=== PATIENT | female | born 1975 | race Caucasian/White ===

== ENCOUNTER → 2017-04-15 | Outpatient (CLI) | payer OTHER ==
[~2017-04-15] VITALS: Ht 167.6 cm; Wt 136.0 kg
[~2017-04-15] MED LIST: DEXILANT30 MG PO; DEXILANT60 MG PO; ENDOCET 5-3251 EACH PO; IBUPROFEN800 MG PO; LO-DOSE ASPIRIN81 M2 PO; PRENATAL TABLE1 EAC3 PO; PRILOSEC OTC20 MG PO; ZANTAC150 MG PO
== END | disposition home or self-care (01) ==
LOC: AMB 04-10 08:00 → OPR 04-10 10:00 → AMB 04-10 12:00 → OPR 04-10 14:00 → AMB 13:30
PROC: 0DB68ZX Excision of Stomach, Via Natural or Artificial Opening Endoscopic, Diagnostic (ICD-10-PCS; principal; 2017-04-15)
PROC: 0DBN8ZX Excision of Sigmoid Colon, Via Natural or Artificial Opening Endoscopic, Diagnostic (ICD-10-PCS; principal; 2017-04-15)
PROC: 0DBP8ZX Excision of Rectum, Via Natural or Artificial Opening Endoscopic, Diagnostic (ICD-10-PCS; principal; 2017-04-15)
PROC: 0DBE8ZX Excision of Large Intestine, Via Natural or Artificial Opening Endoscopic, Diagnostic (ICD-10-PCS; principal; 2017-04-15)
PROC: 0DBL8ZX Excision of Transverse Colon, Via Natural or Artificial Opening Endoscopic, Diagnostic (ICD-10-PCS; principal; 2017-04-15)
DX: Z12.11 Encounter for screening for malignant neoplasm of colon (principal); D12.3 Benign neoplasm of transverse colon; D12.5 Benign neoplasm of sigmoid colon; K62.1 Rectal polyp; K44.9 Diaphragmatic hernia without obstruction or gangrene; K29.70 Gastritis, unspecified, without bleeding; K21.9 Gastro-esophageal reflux disease without esophagitis; Z83.71 Family history of colonic polyps; Z80.0 Family history of malignant neoplasm of digestive organs; Z15.09 Genetic susceptibility to other malignant neoplasm; Z86.718 Personal history of other venous thrombosis and embolism; K31.7 Polyp of stomach and duodenum; Z79.82 Long term (current) use of aspirin; Z88.0 Allergy status to penicillin; E66.9 Obesity, unspecified; Z68.42 Body mass index [BMI] 45.0-49.9, adult
CPT/HCPCS: 88305; 88342 TC; J2250